=== PATIENT | female | born 2000 | race Caucasian/White ===

== ENCOUNTER 2024-08-19 12:34 | Emergency (ER) | payer BC, SELFPAY ==
--- NOTE | ~2024-08-19 | CT_ITS ---
EXAMINATION: CT HEAD WITHOUT CONTRAST CLINICAL INFORMATION: Seizure with head strike. COMPARISON: None available. TECHNIQUE: Contiguous axial imaging was performed from the skull base to vertex without intravenous administration of contrast. This CT examination was performed using dose optimization techniques as appropriate, variously including the following: *Automated exposure control *Adjustment of mA and/or kV according to patient size (this includes techniques or standardized protocols for targeted exams where dose is matched to indication/reason for exam; i.e. extremities or head) *Use of iterative reconstruction technique FINDINGS: There is no evidence of intracranial hemorrhage or extra-axial fluid collection. There is no mass effect, or edema. No CT evidence of acute territorial infarct. Ventricles, sulci, and cisterns are normal in size and configuration for patient age. No hydrocephalus. No midline shift. Negative hyperdense MCA sign. Negative insular ribbon sign. No white matter abnormality. Normal pituitary. Globes and orbital contents image normally. No extracranial soft tissue abnormalities. The paranasal sinuses, mastoid air cells, and tympanic cavities are normally aerated. No suspicious bony abnormalities. There are no acute fractures evident. CT/CT head/brain wo IV con IMPRESSION: No acute intracranial abnormality. Electronically signed by: Tristan Membreno MD 08/19/2024 04:51 PM EDT
[2024-08-19 12:37] VITALS: BP 110/76; PULSE 109; O2SAT 100
[2024-08-19 12:43] VITALS: BP 107/65; PULSE 97; RESP 18; O2SAT 95; BMI 26.1
[2024-08-19 14:50] VITALS: BP 127/55; PULSE 95; RESP 14; TEMP 37.2; O2SAT 100
--- NOTE | 2024-08-19 14:51 | ED_ITS ---
HPI - Seizure General Chief Complaint: Seizure Stated Complaint: Fever per ems Time Seen by Provider: 08/19/24 14:29 Source: patient and other (friend Oralia ) Mode of arrival: ambulatory Limitations: no limitations History of Present Illness ED Provider: BONI JAIMES Narrative: 23 year-old female with PMHx of depression, presents to the ED by ambulance due to seizure. Patient is accompanied by her friend Oralia who witness the events that took place before, during and after the seizure. Friend states the patient was in her dorm room getting ready to leave when she first tripped over the rug. Once they began walking down the hallway, the patient fumbled and dropped her water bottle. Once they began walking down the stairs, the patient missed the last stair and stumbled forward hitting her head on a radiator on the wall infront of her. The patient tried to break her fall with her arms but hit her right forehead on the radiator. The friend states the patient was seizing for approximately 4 minutes and describes her having stiff body movements , and spitting up. Friend states it took the patient approximately 3 minutes to respond and that the patient was confused after regaining consciousness. The patient was experiencing nausea and vomited once after arriving to the ED. The patient states she started taking wellbutrin for depression around April 2024 and takes the medication daily. She also reports she drinks 3-4 times a week up to 5 shots of vodka and smokes marijuana daily 1-2 times per day. She reports her twin brother had new onset seizure 1 week ago and was told to discontinue taking his wellbutrin. She denies recent illness, sick contacts, fever, chills, chest pain, SOB, visual changes or diarrhea. MD complaint: seizure Onset (ago): hour(s) Description of Episode: loss of consciousness, tonic-clonic movement (reported by friend) and post-event confusion Duration of episode: 4 -: minutes(s) Witnessed: Yes - by Other (friend) Trauma: Yes (fall with headstrike ) Seizure History: No Place: School ([employer] ) Related Data Allergies Allergy/AdvReac Type Severity Reaction Status Date / Time No Known Allergies Allergy Verified 08/19/24 12:44 [facility] Social History Social History Alcohol intake: current Alcohol intake frequency: holidays/special occasions only Substance Use Type: Marijuana Physical Exam 2 Vital Signs: Vital Signs: Last Vital Signs Temp 99.0 F 08/19/24 17:28 Pulse 95 08/19/24 17:28 Resp 14 08/19/24 17:28 BP 127/55 L 08/19/24 17:28 Pulse Ox 100 08/19/24 17:28 O2 Del Method Room Air 08/19/24 17:28 BMI result Body Mass Index 26.1 Medications Administered Discontinued Medications Generic Name Dose Route Start Last Admin Trade Name Kellie PRN Reason Stop Dose Admin Sodium Chloride 1,000 mls @ 999 mls/hr 08/19/24 14:55 08/19/24 16:20 Ns IV 08/19/24 15:55 Infused .Q1H1M STA Infusion Midazolam HCl 2 mg 08/19/24 14:55 08/19/24 15:16 Midazolam Hcl 2 Mg/2 Ml Vial IVPUSH 08/19/24 14:56 2 mg ONCE ONE Administration Medical Decision Making Medical Decision Making MDM Narrative: 23 year-old female with PMHx of depression, presents to the ED by ambulance due to seizure. The patient's seizure was witnessed by her roommate and was preceded by ataxia of her upper and lower extremities. Roommate describes a tonic-clonic seizure lasting a proximally 4 minutes with a postictal. Patient he was on Wellbutrin for depression and has been drinking alcohol 3 to 4 times a week, she did drink 5 shots of vodka last night. Physical examination did reveal a small bite wound to her left tongue otherwise was unremarkable. Differential diagnosis: ?Includes but is not limited to Course: 17:06 The patient was given Versed 2 g IV to raise her seizure threshold. My independent interpretation patient's laboratory evaluation is as follows: CBC was normal. CMP was normal. Ethanol was below detectable limits. Quantitative beta-hCG was below detectable limits. CT scan of the brain revealed no acute abnormalities, no skull fracture, no bleeding in the brain. At this time, I believe that the patient did have an epileptic seizure most likely triggered by alcohol consumption and Wellbutrin. I did discuss this with the patient. The patient was advised to stop taking Wellbutrin and to stop drinking alcohol for at least 6 months. I did discuss the fact that there was a 50% chance that she could have another seizure however at this time I do not think that she should be started on anti--seizure medications since the cause of her seizures may be alcohol and Wellbutrin related. Patient did agree with this treatment plan. Patient will need to follow-up with our neurologist for further evaluation of her seizure disorder. She was given printed and verbal instructions and discharged home. Admission/Observation Consideration of admission/observation: Escalation of care including admission/observation considered (Yes) Lab Data MDM Lab Attestation statement: I reviewed the patient's lab results. 08/19/24 15:18 08/19/24 15:18 Labs: Lab Results 08/19/24 Range/Units 15:18 WBC 7.2 (4.8-10.8) X10*3/uL RBC 4.46 (4.20-5.50) X10*6/uL Hgb 13.0 (12.0-16.0) g/dl Hct 38.5 (37.0-47.0) % MCV 86.3 (80.0-98.0) fL MCH 29.1 (27.0-33.0) pg MCHC 33.8 (31.0-35.0) g/dl RDW 14.2 (11.0-16.0) % Plt Count 260 (160-400) X10*3/uL MPV 10.0 (9.4-12.3) fL Immature Gran % (Auto) 0.4 (0.0-0.4) % Neut % (Auto) 73.3 H (45-73) % Lymph % (Auto) 17.5 L (20-40) % [place] % (Auto) 7.0 (2-11) % Eos % (Auto) 1.4 (0-4) % Baso % (Auto) 0.4 (0-2) % Lymph # (Auto) 1.3 (1.2-4.9) X10*3/uL [place] # (Auto) 0.5 (0.1-1.2) X10*3/uL Eos # (Auto) 0.1 (0.0-0.4) X10*3/uL Baso # (Auto) 0.0 (0.0-0.2) X10*3/uL Abs Immat Gran (auto) 0.03 (0.00-0.03) X10*3/uL Absolute Neuts (auto) 5.2 (2.0-8.3) x10*3/uL Absolute Nucleated RBC 0.000 (0.0-0.012) X10*3/uL Nucleated RBC % (auto) 0.0 (0.0-0.2) /100WBC Sodium 141 (135-145) mmol/L Potassium 3.8 (3.3-5.1) mmol/L Chloride 107 (96-108) mmol/L Carbon Dioxide 25 (22-29) mmol/L Anion Gap 13 (12-20) BUN 10 (9-16) mg/dL Creatinine 0.67 (0.5-1.4) mg/dL Estim Creat Clear Calc 112.7 Estimated GFR > 60 Random Glucose 96 (60-115) mg/dL Calcium 9.5 (8.4-10.2) mg/dL Magnesium 2.0 (1.6-2.6) mg/dL Total Bilirubin 0.7 (0.0-1.0) mg/dL AST 31 (5-31) U/L ALT 20 (0-31) U/L Alkaline Phosphatase 102 (39-117) U/L Total Protein 7.7 (6.5-8.0) g/dL Albumin 4.5 (3.5-5.0) g/dL Beta HCG, Quant < 2 mIU/mL Ethyl Alcohol < 10 mg/dL Radiology Impression Discussion of test interpretation with radiology: I have reviewed the radiologist's reading. Radiologist Impression: CT head/brain wo IV con IMPRESSION: No acute intracranial abnormality. Electronically signed by: Tristan Membreno MD 08/19/2024 04:51 PM Independent Historian Clinical information obtained from an independent historian. History obtained from or confirmed by: Other (Patient's roommate, Oralia) Critical Care Time Critical Care Time Critical Care Time: Yes Total Critical Care Time: 35 Attestation: Critical Care: The patient was critically ill with a high probability of imminent or life threatening deterioration. I spent greater than 30 minutes of discontinuous time evaluating the patient,delivering critical care at the bedside, discussing and evaluating pertinent data with consultants. Critical care time does not include time spent performing separately billable procedures or teaching. Total time spent performing critical care was 35 minutes. Discharge Plan Discharge Clinical Impression: Epileptic seizure Patient Disposition: Home, Self-Care Instructions: New-Onset Seizure in Adults (ED) Additional Instructions: Your roommate's description of the events that occurred to you prior to coming to the emergency department are consistent with in the electric/epileptic seizure. On your exam you also have a very small bite wound to your tongue and this is also consistent with a seizure. You had a CBC, comprehensive metabolic panel here in the emergency department and these tests were normal. Your serum test (quantitative beta-hCG) was negative and you are not . The CT scan of your head revealed no skull fracture or bleeding in the brain which is reassuring. At this time, I believe that the Wellbutrin and your alcohol consumption lowered your seizure threshold and cause you to have a seizure. If you stop the Wellbutrin and do not drink alcohol for 6 months then you may not have a 2nd seizure. As I discussed with the you, there is a 50% chance of having a 2nd seizure over the next 6 months therefore you need to take precautions and not participate in any activity that could cause harm to if you had a seizure. These activities include but are not limited to driving, riding a bike, swimming, taking a bath in a bath tub, climbing, sports. Often there were other tests that we do for new onset seizures including an MRI of the brain and EEG (brain wave study). Follow-up with our neurologist, Dr. Funes's office for re-evaluation and for further testing in the next 1-2 weeks. I also want you to follow-up with [facility]. Please return to the emergency department if your symptoms get worse or if you develop any symptoms that are concerning to you. Referrals: Aida Funes MD [Physician] - 2 weeks (New onset seizure, on Wellbutrin, has been drinking alcohol several times a week, drank last night-5 vodka shots. Patient was advised to stop Wellbutrin and to stop drinking for at least 6 months.) Interventions: ED Discharge Assessment Last Done: 08/19/24 17:28 Discharge Date/Time: 08/19/24 17:50 Print Language: Ukrainian
[2024-08-19] MEDS: 0.9 % Sodium Chloride 1,000 ML 999 ML IV (15:13)
[2024-08-19] MEDS: Midazolam HCl 2 MG/2 ML VIAL IVPUSH (15:16)
[2024-08-19 15:25] LABS: MANUAL DIFF FLAG NO
[2024-08-19 15:27] LABS: Basophils Percent Auto 0.4 % (0-2); Eosinophils Absolute Auto 0.1 X10*3/uL (0.0-0.4); Eosinophils Percent Auto 1.4 % (0-4); Hematocrit 38.5 % (37.0-47.0); Imm Gran Abs Auto 0.03 X10*3/uL (0.00-0.03); Imm Gran Pct Auto 0.4 % (0.0-0.4); Lymphocytes Absolute Auto 1.3 X10*3/uL (1.2-4.9); Lymphocytes Percent Auto 17.5 % (20-40); Mean Corpuscular HGB Conc 33.8 g/dl (31.0-35.0); Mean Corpuscular Hemoglobin 29.1 pg (27.0-33.0); Mean Corpuscular Volume 86.3 fL (80.0-98.0); Monocytes Absolute Auto 0.5 X10*3/uL (0.1-1.2); Neutrophils Absolute Auto 5.2 x10*3/uL (2.0-8.3); Neutrophils Percent Auto 73.3 % (45-73); Platelet Count 260 X10*3/uL (160-400); Red Blood Count 4.46 X10*6/uL (4.20-5.50); Red Cell Distribution Width 14.2 % (11.0-16.0); White Blood Count 7.2 X10*3/uL (4.8-10.8)
[2024-08-19 15:58] LABS: Alanine Aminotransferase 20 U/L (0-31); Albumin Level 4.5 g/dL (3.5-5.0); Anion Gap 13 (12-20); Aspartate Amino Transferase 31 U/L (5-31); Bilirubin Total 0.7 mg/dL (0.0-1.0); Blood Urea Nitrogen 10 mg/dL (9-16); Calcium 9.5 mg/dL (8.4-10.2); Carbon Dioxide 25 mmol/L (22-29); Chloride 107 mmol/L (96-108); Creatinine Clr Calc Pharmacy 112.7; Estimated Glomerular Filt Rate > 60; Ethanol < 10 mg/dL; Glucose Random 96 mg/dL (60-115); HCG Quantitative < 2 mIU/mL; Potassium 3.8 mmol/L (3.3-5.1); Sodium 141 mmol/L (135-145); Total Protein 7.7 g/dL (6.5-8.0)
--- NOTE | 2024-08-19 16:03 | PC.NURSE ---
With patients permission aundrea foley staff updated on current condition
[2024-08-19 17:28] VITALS: BP 127/55; PULSE 95; RESP 14; TEMP 37.2; O2SAT 100
[2024-08-19 18:40] LABS: Alkaline Phosphatase 102 U/L (39-117)
== END 2024-08-19 17:50 | disposition home or self-care (01) ==
PROVIDERS: Emergency Provider Emergency Medicine Emergency Medical Services
DX: R56.9 Unspecified convulsions (principal); R10.2 Pelvic and perineal pain; R11.2 Nausea with vomiting, unspecified; Z51.81 Encounter for therapeutic drug level monitoring; Z79.899 Other long term (current) drug therapy
CPT/HCPCS: 36415; 70450; 80053; 80307; 83735; 84702; 85025; 96361; 96374; 99284; J2250

== ENCOUNTER → 2024-08-19 14:55 | Outpatient (BNV) | payer BC, SELFPAY | PROVIDERS: Emergency Provider Emergency Medicine Emergency Medical Services; Visit Provider Radiology Diagnostic Radiology | DX: G40.509 Epileptic seizures related to external causes, not intractable, without status epilepticus (principal); S09.90XA Unspecified injury of head, initial encounter | CPT/HCPCS: 70450 ==